=== PATIENT | male | born 1995 | race American Indian/Alaskan Native ===

== ENCOUNTER 2018-01-01 02:39 | Emergency (ER) | payer SELFPAY ==
[2018-01-01 02:52] VITALS: BP 130/88
[2018-01-01] MEDS ORDERED: MOTRIN PO ONE (04:14)
--- NOTE | 2018-01-01 04:14 | Emergency Department Report ---
Abscess Boil HPI - HPI Chief Complaint: Skin/Abscess/Foreign Body Stated Complaint: RASH RT ABDOMEN Time Seen by Provider: 01/01/18 04:08 Duration: 4 Days Location: Lower Extremity Severity: Severe History: Yes Pain, No Fever HPI: 22-year-old Afro[place] male comes in reporting a abscess to his right hip with pain 8 out of 10. Patient reports he has a cousin who he lives with they have staff on his chest. Patient also requests pain medicine that puts him to sleep. Home Medications: Previous Rx's Medication Instructions Recorded Last Taken Type Ibuprofen [Motrin 600 MG tab] 600 mg PO Q8H PRN #30 tablet 01/01/18 Unknown Rx Sulfamethoxazole/Trimethoprim 1 each PO BID 10 Days #20 tablet 01/01/18 Unknown Rx [Bactrim Ds Tablet] Allergies/Adverse Reactions: Allergies Allergy/AdvReac Type Severity Reaction Status Date / Time No Known Allergies Allergy Unverified 01/01/18 02:47 ED Review of Systems ROS: Stated complaint: RASH RT ABDOMEN Other details as noted in HPI Skin: rash ED Past Medical Hx - Past Medical History Previous Medical History?: No - Surgical History Past Surgical History?: No - Social History Smoking Status: Current Every Day Smoker Substance Use Type: None - Medications Home Medications: Home Medications Medication Instructions Recorded Confirmed Last Taken Type Ibuprofen [Motrin 600 MG tab] 600 mg PO Q8H PRN #30 tablet 01/01/18 Unknown Rx Sulfamethoxazole/Trimethoprim 1 each PO BID 10 Days #20 tablet 01/01/18 Unknown Rx [Bactrim Ds Tablet] ED Abscess Boil Physical Exam - Exam General: Vital signs noted. No distress. Alert and acting appropriately. Size: 1 cm Exam: Yes Tenderness, No Fluctuance, No Surrounding Cellulites/Erythema, No Lymphangitis, No Crepitation, No Heart Murmur, No Normal Neurologic Exam, No Normal Circulation ED Course Vital Signs 01/01/18 02:47 Temperature 98 F Pulse Rate 52 L Respiratory 18 Rate Blood Pressure 130/88 O2 Sat by Pulse 100 Oximetry Critical care attestation.: If time is entered above; I have spent that time in minutes in the direct care of this critically ill patient, excluding procedure time. ED Medical Decision Making - Medical Decision Making Patient has been evaluated by this provider fast track. Patient small abscess is not ready to be drained. We'll give patient ibuprofen for pain management. We'll place patient on Bactrim double strength 1 tablet by mouth 10 days dispense 20 no refills. Patient is to follow-up with primary care provider. ED Disposition Clinical Impression: Staphylococcal infection of skin Disposition: - TO HOME OR SELFCARE Is pt being admited?: No Does the pt Need Aspirin: No Condition: Stable Instructions: Abscess (ED) Additional Instructions: Complete antibiotics as prescribed. Take pain medication as needed for pain. Follow-up with [facility] or your primary care provider if symptoms persist or gets worse Prescriptions: Ibuprofen [Motrin 600 MG tab] 600 mg PO Q8H PRN #30 tablet PRN Reason: Pain , Severe (7-10) Sulfamethoxazole/Trimethoprim [Bactrim Ds Tablet] 1 each PO BID 10 Days #20 tablet Referrals: PRIMARY CARE, [Primary Care Provider] - 3-5 Days Forms: Work/School Release Form(ED)
== END 2018-01-01 04:41 | disposition home or self-care (01) ==
LOC: ED 02:39
DX: L00 Staphylococcal scalded skin syndrome (principal); B95.8 Unspecified staphylococcus as the cause of diseases classified elsewhere; L49.0 Exfoliation due to erythematous condition involving less than 10 percent of body surface; F17.200 Nicotine dependence, unspecified, uncomplicated
CPT/HCPCS: 99282

== ENCOUNTER 2021-06-13 01:04 | Emergency (ER) | payer SELFPAY ==
[2021-06-13 02:06] VITALS: BP 140/91
== END 2021-06-13 03:33 | disposition left against medical advice (07) ==
LOC: ED 01:04
DX: M79.18 Myalgia, other site (principal); R11.10 Vomiting, unspecified; Z53.21 Procedure and treatment not carried out due to patient leaving prior to being seen by health care provider